=== PATIENT | female | born 1945 | race Caucasian/White ===

== ENCOUNTER 2016-12-23 14:39 | Emergency (ER) | payer MEDICARE ==
[~2016-12-23] VITALS: Ht 167.6 cm; Wt 56.2 kg
[~2016-12-23 14:39] MED LIST: /WARF5TA; ASPI81TA83; FOSA5TAB; PERC5TAB8; PERC7.5T8; VITAMIN D50000 UNT
[2016-12-23 14:40] VITALS: BP 159/106
[2016-12-23] MEDS ORDERED: CENTTAB12 PO (14:54)
[2016-12-23] MEDS ORDERED: FOLI5INJ2 PO (14:54)
[2016-12-23] MEDS ORDERED: ASPI81TA85 PO (14:54)
[2016-12-23] MEDS ORDERED: SING5CHW23 PO (14:54)
[2016-12-23] MEDS ORDERED: METH2.5TA PO (14:54)
[2016-12-23] MEDS ORDERED: MELO7.5T6 PO (14:54)
[2016-12-23] MEDS ORDERED: ALEN70SO PO ×2 (14:54)
[2016-12-23] MEDS ORDERED: REST0.05 OP (14:54)
[2016-12-23] MEDS ORDERED: VALS1TAB49 PO (14:54)
[2016-12-23] MEDS ORDERED: PERCOCET 5MG/325MG TAB PO ONE (15:15)
[2016-12-23] MEDS ORDERED: PERC5TAB6 PO (16:00)
--- NOTE | 2016-12-23 16:23 | REP ---
LEFT WRIST, FOUR VIEWS: HISTORY: Fall. There is a nondisplaced intraarticular fracture of the distal radius. There is a possible nondisplaced fracture of the ulnar styloid process. There is no dislocation. There is narrowing of the lateral carpal and first carpometacarpal joint space. The bony structure is osteopenic. IMPRESSION: 1. Nondisplaced fracture of the distal radius. 2. There is a possible nondisplaced fracture of the ulnar styloid process. Signed by Slick Leiva MD 12/23/2016 04:24 P
== END 2016-12-23 16:12 | disposition home or self-care (01) ==
LOC: M ED 15:44
DX: S52.502A Unspecified fracture of the lower end of left radius, initial encounter for closed fracture (principal); S52.615A Nondisplaced fracture of left ulna styloid process, initial encounter for closed fracture; W01.0XXA Fall on same level from slipping, tripping and stumbling without subsequent striking against object, initial encounter; Y92.018 Other place in single-family (private) house as the place of occurrence of the external cause; Y93.89 Activity, other specified; Y99.8 Other external cause status; Z79.899 Other long term (current) drug therapy; Z79.82 Long term (current) use of aspirin; Z79.01 Long term (current) use of anticoagulants; Z88.0 Allergy status to penicillin; Z88.5 Allergy status to narcotic agent

== ENCOUNTER → 2018-10-21 | Outpatient (CLI) | payer MEDICARE ==
[~2018-10-21] MED LIST changes: -/WARF5TA; +ALEN70SO PO; +ASPI81TA85 PO; +CENTTAB12 PO; +COUM1TAB17; +FOLI5INJ2 PO; +MELO7.5T7 PO; +METH2.5T48 PO; +PERC5TAB12 PO; +REST0.05 OP; +SING5CHW23 PO; +VALS1TAB49 PO
[2018-10-21 15:13] LABS: BASO # 0.1 10^3/uL (0.0-0.2); BASO % 0.9 % (0.0-1.0); EOS # 0.1 10^3/uL (0.0-0.50); EOS % 1.4 % (0.0-3.0); HEMATOCRIT 37.6 % (36.0-47.0); HEMOGLOBIN 12.6 g/dl (12.0-15.5); LYMPH # 2.1 10^3/uL (1.5-4.5); LYMPH % 35.9 % (24.0-44.0); MEAN CORPUSCULAR HEMOGLOBIN 31.6 pg (27.0-33.0); MEAN CORPUSCULAR HGB CONC 33.5 g/dl (32.0-36.5); MEAN CORPUSCULAR VOLUME 94.2 fl (80.0-96.0); MONO # 0.5 10^3/uL (0.0-0.8); MONO % 9.1 % (0.0-5.0); NEUTROPHILS % 52.5 % (36.0-66.0); PLATELET COUNT, AUTOMATED 365 10^3/uL (150-450); RED BLOOD COUNT 3.99 10^6/uL (4.00-5.40); WHITE BLOOD COUNT 5.7 10^3/uL (4.0-10.0)
[2018-10-21 15:27] LABS: ALBUMIN 3.9 GM/DL (3.2-5.2); ALT/SGPT 30 U/L (12-78); BILIRUBIN,TOTAL 0.5 MG/DL (0.2-1.0); BLOOD UREA NITROGEN 15 MG/DL (7-18); CALCIUM LEVEL 8.6 MG/DL (8.8-10.2); CARBON DIOXIDE LEVEL 27 MEQ/L (21-32); CHLORIDE LEVEL 100 MEQ/L (98-107); CHOLESTEROL LEVEL 211 MG/DL (<200); CHOLESTEROL RISK RATIO 1.971 (<5); CREATININE FOR GFR 0.78 MG/DL (0.55-1.30); GLOMERULAR FILTRATION RATE > 60.0 (>39); GLUCOSE, FASTING 97 MG/DL (70-100); HDL CHOLESTEROL 107 MG/DL (>40); LDL CHOLESTEROL 92 MG/DL (<100); NON-HDL-C 104 MG/DL; POTASSIUM SERUM 4.9 MEQ/L (3.5-5.1); SODIUM LEVEL 135 MEQ/L (136-145); THYROID STIMULATING HORMONE 0.797 uIU/ML (0.358-3.740); THYROXINE (T4) 8.8 UG/DL (4.5-12.0); TOTAL 25(OH) VITAMIN D 15.3 NG/ML (30.0-100.0); TOTAL PROTEIN 7.6 GM/DL (6.4-8.2); TRIGLYCERIDES LEVEL 58 MG/DL (<150)
== END ==
LOC: M LABDRWSH 10:00
PROVIDERS: ATTEND Family Medicine
DX: Z00.00 Encounter for general adult medical examination without abnormal findings (principal); E55.9 Vitamin D deficiency, unspecified; I10 Essential (primary) hypertension; E78.5 Hyperlipidemia, unspecified

== ENCOUNTER → 2019-02-19 | Outpatient (CLI) | payer MEDICARE ==
--- NOTE | 2019-02-19 11:58 | REP ---
Lumbar spine three views AP and lateral projections: There are no comparisons. There is mild scoliosis convex left, possibly positional. Vertebral body heights, interspacing alignment are normal. There is mild degenerative disc disease at L3-4. There is no spondylolysis or spondylolisthesis. The pedicles, facets and sacroiliac articulations are unremarkable. Impression: Mild scoliosis. Mild L3-4 degenerative disc disease. Electronically Signed by Nomi Del Angel MD 02/19/2019 11:49 A
[2019-02-19 17:58] LABS: ALBUMIN 3.9 GM/DL (3.2-5.2); ALT/SGPT 23 U/L (12-78); BILIRUBIN,TOTAL 0.4 MG/DL (0.2-1.0); BLOOD UREA NITROGEN 12 MG/DL (7-18); CALCIUM LEVEL 8.8 MG/DL (8.8-10.2); CARBON DIOXIDE LEVEL 27 MEQ/L (21-32); CHLORIDE LEVEL 102 MEQ/L (98-107); CHOLESTEROL LEVEL 201 MG/DL (<200); CHOLESTEROL RISK RATIO 2.115 (<5); CREATININE FOR GFR 0.56 MG/DL (0.55-1.30); GLOMERULAR FILTRATION RATE > 60.0 (>39); GLUCOSE, FASTING 82 MG/DL (70-100); HDL CHOLESTEROL 95 MG/DL (>40); LDL CHOLESTEROL 87 MG/DL (<100); NON-HDL-C 106 MG/DL; POTASSIUM SERUM 5.2 MEQ/L (3.5-5.1); SODIUM LEVEL 135 MEQ/L (136-145); TRIGLYCERIDES LEVEL 93 MG/DL (<150)
== END ==
LOC: M WUC 11:18
PROVIDERS: ATTEND Family Medicine
DX: M51.36 Other intervertebral disc degeneration, lumbar region (principal); M41.9 Scoliosis, unspecified; M54.9 Dorsalgia, unspecified; E78.5 Hyperlipidemia, unspecified

== ENCOUNTER → 2020-01-14 | Outpatient (CLI) | payer MEDICARE ==
[~2020-01-14] MED LIST changes: -VALS1TAB49 PO; +VALS40TA9 PO
--- NOTE | 2020-01-14 11:54 | REP ---
Bilateral rib series: Nine views. History: Right back and rib pain after falling out of bed 5 weeks ago. Comparison chest x-ray: August 28, 2009. Findings: There is a dextroconvex thoracic scoliotic curve. There is advanced diffuse osteopenia. There is no visible left rib fracture or bony destructive lesion. Right rib views demonstrate old appearing irregularity of the right posterolateral 6th 7th and 8th ribs. This is most consistent with old rib fracture. No acute rib fracture is appreciated. Impression: There is marked diffuse osteoporosis. There are old appearing fractures on the right as above. No definite acute fracture seen. Electronically Signed by Jd Cardoza MD 01/14/2020 11:45 A
--- NOTE | 2020-01-14 11:56 | REP ---
Lumbar spine series: Three views. History: Back pain. Findings: There is a levoconvex curvature on the AP view mild in degree. Pedicles and posterior elements are intact. Sacrum is intact. Lumbar vertebral body heights are preserved. There is disc space narrowing and spurring at L3-4 L4-5 mild in degree. No fracture or collapse is seen. No significant change from comparison study February 19, 2019. Impression: No traumatic abnormality noted. Diffuse osteopenia. Electronically Signed by Jd Cardoza MD 01/14/2020 11:47 A
== END ==
LOC: M WUC 11:19
PROVIDERS: ATTEND Family Medicine
DX: M54.9 Dorsalgia, unspecified (principal); R07.81 Pleurodynia; M85.80 Other specified disorders of bone density and structure, unspecified site; Z87.81 Personal history of (healed) traumatic fracture

== ENCOUNTER → 2021-07-22 | Outpatient (CLI) | payer MEDICARE ==
[~2021-07-22] MED LIST changes: -ALEN70SO PO; +ALEN70SO2 PO; -ASPI81TA85 PO; +ASPI81TA86 PO
== END ==
LOC: M WUC 12:04
PROVIDERS: ATTEND Family Medicine
DX: M54.50 Low back pain, unspecified (principal)

== ENCOUNTER → 2022-04-08 | Outpatient (CLI) | payer MEDICARE ==
[2022-04-08 19:52] LABS: HEMATOCRIT 40.2 % (36.0-47.0); HEMOGLOBIN 13.1 g/dl (12.0-15.5); MEAN CORPUSCULAR HEMOGLOBIN 31.1 pg (27.0-33.0); MEAN CORPUSCULAR HGB CONC 32.6 g/dl (32.0-36.5); MEAN CORPUSCULAR VOLUME 95.5 fl (80.0-96.0); PLATELET COUNT, AUTOMATED 392 10^3/uL (150-450); RED BLOOD COUNT 4.21 10^6/uL (4.00-5.40); WHITE BLOOD COUNT 9.7 10^3/uL (4.0-10.0)
[2022-04-08 20:11] LABS: ALBUMIN 3.9 GM/DL (3.2-5.2); ALT/SGPT 25 U/L (12-78); BILIRUBIN,TOTAL 0.4 MG/DL (0.2-1.0); BLOOD UREA NITROGEN 11 MG/DL (7-18); CARBON DIOXIDE LEVEL 27 MEQ/L (21-32); CHLORIDE LEVEL 99 MEQ/L (98-107); CHOLESTEROL LEVEL 213 MG/DL (<200); CHOLESTEROL RISK RATIO 1.789 (<5); CREATININE FOR GFR 0.52 MG/DL (0.55-1.30); GLOMERULAR FILTRATION RATE > 60.0 (>39); GLUCOSE, FASTING 89 MG/DL (70-100); HDL CHOLESTEROL 119 MG/DL (>40); LDL CHOLESTEROL 74 MG/DL (<100); NON-HDL-C 94 MG/DL; POTASSIUM SERUM 4.1 MEQ/L (3.5-5.1); SODIUM LEVEL 134 MEQ/L (136-145); THYROID STIMULATING HORMONE 0.483 uIU/ML (0.358-3.740); TOTAL PROTEIN 7.6 GM/DL (6.4-8.2); TRIGLYCERIDES LEVEL 102 MG/DL (<150)
== END ==
LOC: M WUC 15:24
PROVIDERS: ATTEND Family Medicine
DX: E78.5 Hyperlipidemia, unspecified (principal); R63.4 Abnormal weight loss

== ENCOUNTER → 2022-05-02 | Outpatient (CLI) | payer MEDICARE | LOC: M RAD 15:01 | PROVIDERS: ATTEND Hospitalist | DX: R41.89 Other symptoms and signs involving cognitive functions and awareness (principal) ==

== ENCOUNTER → 2022-05-16 | Outpatient (CLI) | payer MEDICARE ==
[2022-05-16 17:07] LABS: BASO % 0.4 % (0.0-1.0); EOS % 0.3 % (0.0-3.0); HEMATOCRIT 43.5 % (36.0-47.0); HEMOGLOBIN 14.8 g/dl (12.0-15.5); LYMPH # 2.1 10^3/uL (1.5-5.0); LYMPH % 20.2 % (24.0-44.0); MEAN CORPUSCULAR HEMOGLOBIN 32.5 pg (27.0-33.0); MEAN CORPUSCULAR VOLUME 95.4 fl (80.0-96.0); MONO % 9.4 % (2.0-8.0); NEUTROPHILS # 7.3 10^3/uL (1.5-8.5); NEUTROPHILS % 69.4 % (36.0-66.0); PLATELET COUNT, AUTOMATED 524 10^3/uL (150-450); RED BLOOD COUNT 4.56 10^6/uL (4.00-5.40); WHITE BLOOD COUNT 10.5 10^3/uL (4.0-10.0)
[2022-05-16 17:57] LABS: ALBUMIN 3.7 GM/DL (3.2-5.2); ALT/SGPT 17 U/L (12-78); BILIRUBIN,TOTAL 0.5 MG/DL (0.2-1.0); BLOOD UREA NITROGEN 11 MG/DL (7-18); CALCIUM LEVEL 9.1 MG/DL (8.8-10.2); CARBON DIOXIDE LEVEL 27 MEQ/L (21-32); CHLORIDE LEVEL 93 MEQ/L (98-107); CREATININE FOR GFR 0.78 MG/DL (0.55-1.30); FREE T4 1.49 NG/DL (0.76-1.46); GLOMERULAR FILTRATION RATE > 60.0 (>39); GLUCOSE, FASTING 109 MG/DL (70-100); POTASSIUM SERUM 3.9 MEQ/L (3.5-5.1); SODIUM LEVEL 130 MEQ/L (136-145); TOTAL PROTEIN 7.6 GM/DL (6.4-8.2)
[2022-05-16 18:36] LABS: VITAMIN B12 LEVEL 1111 PG/ML (247-911)
== END ==
LOC: M WUC 13:42
DX: R41.89 Other symptoms and signs involving cognitive functions and awareness (principal); Z79.899 Other long term (current) drug therapy

== ENCOUNTER → 2022-06-02 | Outpatient (REF) | payer MEDICARE ==
[2022-06-02 20:18] LABS: BLOOD UREA NITROGEN 7 MG/DL (7-18); CALCIUM LEVEL 8.6 MG/DL (8.8-10.2); CARBON DIOXIDE LEVEL 25 MEQ/L (21-32); CHLORIDE LEVEL 103 MEQ/L (98-107); GLOMERULAR FILTRATION RATE > 60.0 (>39); GLUCOSE, FASTING 95 MG/DL (70-100); POTASSIUM SERUM 3.9 MEQ/L (3.5-5.1); SODIUM LEVEL 137 MEQ/L (136-145)
== END ==
LOC: M LABWUC 17:11
PROVIDERS: ATTEND Hospitalist
DX: E87.1 Hypo-osmolality and hyponatremia (principal)

== ENCOUNTER 2022-07-09 11:36 | Outpatient (RCR) | payer MEDICARE | END 2022-07-26 | LOC: M PT 11:36 | PROVIDERS: ATTEND Family Medicine | DX: M25.552 Pain in left hip (principal) ==

== ENCOUNTER 2022-08-06 13:37 | Emergency (ER) | payer MEDICARE ==
[~2022-08-06] VITALS: Ht 170.2 cm; Wt 53.6 kg
[2022-08-06] MEDS ORDERED: GABA-282 (14:07)
[2022-08-06] MEDS ORDERED: traMADol 50 MG TAB PO ONE (14:20)
[2022-08-06] MEDS ORDERED: ACETAMINOPHEN TAB 650MG DOSE (2X325MG) PO ONE (14:20)
[2022-08-06] MEDS ORDERED: NEOSPORIN OINT 0.9 GM PKT TOP ONE (14:25)
[2022-08-06] MEDS ORDERED: TRAM50TA2 PO (15:06)
[2022-08-06 15:23] VITALS: BP 147/80
== END 2022-08-06 15:36 | disposition home or self-care (01) ==
LOC: M ED 13:37
DX: S93.601A Unspecified sprain of right foot, initial encounter (principal); S92.515A Nondisplaced fracture of proximal phalanx of left lesser toe(s), initial encounter for closed fracture; W19.XXXA Unspecified fall, initial encounter; Y92.099 Unspecified place in other non-institutional residence as the place of occurrence of the external cause; I10 Essential (primary) hypertension; M81.0 Age-related osteoporosis without current pathological fracture; F03.90 Unspecified dementia, unspecified severity, without behavioral disturbance, psychotic disturbance, mood disturbance, and anxiety; F17.200 Nicotine dependence, unspecified, uncomplicated; Z79.82 Long term (current) use of aspirin; Z79.899 Other long term (current) drug therapy; Z88.0 Allergy status to penicillin; Z88.5 Allergy status to narcotic agent